=== PATIENT | male | born 1990 | race Caucasian/White ===

== ENCOUNTER 2018-08-01 13:43 | Emergency (ER) | payer OTHER ==
[~2018-08-01] VITALS: Ht 160 cm; Wt 49.9 kg
[~2018-08-01 13:43] MED LIST: ALBU2.5V8 INH; DIVA250T PO; LEVE500T56 PO; METH54TA5 PO
[2018-08-01 13:55] VITALS: BP 111/74
[2018-08-01] MEDS ORDERED: DIPHTH,PERTUSS(ACELL),TET TOX 0.5 ML DISP.SYRIN. VAX IM ONE (14:15)
[2018-08-01] MEDS ORDERED: IBUPROFEN 400 MG TABLET. PO ONE (14:15)
[2018-08-01] MEDS ORDERED: IBUP-1027 PO (15:18)
--- NOTE | 2018-08-01 15:19 | PHYS DOC ---
Past Medical History Past Medical History: Seizure, Other Additional Past Medical Histor: ADHD (QUINTIN MALDONADO APRN) Past Surgical History: No Surgical History (QUINTIN MALDONADO APRN) Alcohol Use: None Drug Use: None (QUINTIN MALDONADO APRN) Adult General Chief Complaint Chief Complaint: LACERATION/AVULSION HPI HPI Patient is a 27 year old male who presents with a small laceration to the tip of his nose. The patient states that he was helping move some objects when a light fixture cut the tip of his nose. The patient states that this happened 4 days ago. He states he was unable to get a ride to the emergency department before now. He is asking repeatedly for pain medication. The patient is asking repeatedly for a home prescription for pain medication as well. (QUINTIN MALDONADO APRN) Review of Systems Review of Systems Constitutional: Denies fever or chills [] Eyes: Denies change in visual acuity, redness, or eye pain [] HENT: Denies nasal congestion or sore throat [] Respiratory: Denies cough or shortness of breath [] Cardiovascular: No additional information not addressed in HPI [] GI: Denies abdominal pain, nausea, vomiting, bloody stools or diarrhea [] : Denies dysuria or hematuria [] Musculoskeletal: Denies back pain or joint pain [] Integument: 0.25 cm shallow laceration to the tip of his nose with controlled bleeding Neurologic: Denies headache, focal weakness or sensory changes [] Endocrine: Denies polyuria or polydipsia [] All other systems were reviewed and found to be within normal limits, except as documented in this note. (QUINTIN MALDONADO APRN) Current Medications Current Medications Current Medications Medications (Trade) Dose Ordered Sig/Octavia Start Time Stop Time Status Last Admin Dose Admin Diphtheria/ Tetanus/Acell Pertussis (Boostrix) 0.5 ml ONCE ONCE 08/01/18 14:15 08/01/18 14:16 DC 08/01/18 14:43 0.5 ML Ibuprofen (Motrin) 400 mg 1X ONCE 08/01/18 14:15 08/01/18 14:16 DC 08/01/18 14:42 400 MG (VIVIAN TORRES MD) Allergies Allergies Allergies Coded Allergies Type Severity Reaction Last Updated Verified acetaminophen Allergy Severe seizure 12/28/13 Yes hydrocodone Allergy Severe seizure 12/28/13 Yes (VIVIAN TORRES MD) Physical Exam Physical Exam Constitutional: Well developed, well nourished, no acute distress, non-toxic appearance. [] HENT: Normocephalic, atraumatic, bilateral external ears normal, oropharynx moist, no oral exudates, nose normal. [] Eyes: PERRLA, EOMI, conjunctiva normal, no discharge. [] Neck: Normal range of motion, no tenderness, supple, no stridor. [] Cardiovascular:Heart rate regular rhythm, no murmur [] Lungs & Thorax: Bilateral breath sounds clear to auscultation [] Abdomen: Bowel sounds normal, soft, no tenderness, no masses, no pulsatile masses. [] Skin: Warm, dry, no erythema, no rash. [] Back: No tenderness, no CVA tenderness. [] Extremities: No tenderness, no cyanosis, no clubbing, ROM intact, no edema. [] Neurologic: Alert and oriented X 3, normal motor function, normal sensory funct ion, no focal deficits noted. [] Psychologic: Affect normal, judgement normal, mood normal. [] (QUINTIN MALDONADO APRN) Current Patient Data Vital Signs Vital Signs Date Time Temp Pulse Resp B/P (MAP) Pulse Ox O2 Delivery O2 Flow Rate FiO2 08/01/18 13:55 97.9 86 16 111/74 (86) 96 Room Air 97.9 (VIVIAN TORRES MD) EKG EKG [] (QUINTIN MALDONADO APRN) Radiology/Procedures Radiology/Procedures [] (QUINTIN MALDONADO APRN) Course & Med Decision Making Course & Med Decision Making Pertinent Labs and Imaging studies reviewed. (See chart for details) The patient was given a prescription for ibuprofen. He was also given a prescription upon request for an albuterol inhaler, stating that he is out of his at home. (QUINTIN MALDONADO APRN) Course & Med Decision Making Staff Physician Addendum: I was working in the ER during the course of this patient's visit. I was available for consultation as needed, but I was not directly involved in the care of this patient. (VIVIAN TORRES MD) Dragon Disclaimer Dragon Disclaimer This electronic medical record was generated, in whole or in part, using a voice recognition dictation system. (QUINTIN MALDONADO APRN) Departure Departure Impression: Primary Impression: Laceration Additional Impressions: History of asthma Drug-seeking behavior Disposition: HOME, SELF-CARE Condition: STABLE Referrals: NO PCP (PCP) Patient Instructions: Asthma, Adult, Laceration, Old, Not Sutured Additional Instructions: Take the ibuprofen with food on your stomach. Keep the wound clean and dry. Follow-up with your primary care provider in one week for recheck. Scripts Albuterol Sulfate (PROAIR HFA INHALER) 8.5 Gm Hfa.aer.ad 1 PUFF INH PRN Q6HRS PRN for SHORTNESS OF BREATH, #1 INHALER 0 Refills Prov: QUINTIN MALDONADO APRN 08/01/18 Ibuprofen (IBUPROFEN) 400 Mg Tablet 400 MG PO PRN Q6HRS PRN for INFLAMMATION, #30 TAB Prov: QUINTIN MALDONADO APRN 08/01/18 Problem Qualifiers QUINTIN MALDONADO APRN August 01, 2018 15:19 VIVIAN TORRES MD August 02, 2018 19:26
[2018-08-01] MEDS ORDERED: ALBU2.5V8 INH (15:26)
--- NOTE | 2018-08-02 09:48 | RAD ---
Three-view facial bone series Clinical indications: Light fixture fell on patient last . Pain involving the nose and face. FINDINGS: The mandible is intact. The orbital floors are intact. No fracture line is seen. There is mild nasal septal deviation with the convexity pointed towards the left side. Nasal bone appears intact. No air-fluid levels or opacification of the paranasal sinuses is seen. IMPRESSION: No acute fracture. Electronically signed by: David Cedeno MD (08/01/2018 2:40 PM) [id number]
== END 2018-08-01 15:32 | disposition home or self-care (01) ==
LOC: ER 13:43
DX: S01.21XA Laceration without foreign body of nose, initial encounter (principal); Z76.5 Malingerer [conscious simulation]; J45.909 Unspecified asthma, uncomplicated; F90.9 Attention-deficit hyperactivity disorder, unspecified type; Z88.6 Allergy status to analgesic agent; Z88.5 Allergy status to narcotic agent; W20.8XXA Other cause of strike by thrown, projected or falling object, initial encounter; Y93.89 Activity, other specified; Y92.89 Other specified places as the place of occurrence of the external cause; Y99.8 Other external cause status
CPT/HCPCS: 70150; 90471; 90715; 99284